=== PATIENT | female | born 1970 | race Caucasian/White ===

== ENCOUNTER 2021-09-24 15:25 | Outpatient (CLI) | payer SELFPAY | END 2021-09-24 15:26 | disposition home or self-care (01) | LOC: CSHLAB 15:25 | PROVIDERS: ATTEND Obstetrics & Gynecology | DX: Z01.818 Encounter for other preprocedural examination (principal); N92.0 Excessive and frequent menstruation with regular cycle; D25.9 Leiomyoma of uterus, unspecified; R00.1 Bradycardia, unspecified; R94.31 Abnormal electrocardiogram [ECG] [EKG] | CPT/HCPCS: 84703; 85027; 86850; 86900; 86901; 93005; 93010; U0003; U0005 ==